=== PATIENT | male | born 1945 | race Caucasian/White ===

== ENCOUNTER 2021-05-26 15:20 | Inpatient (IN) | payer MEDICARE, OTHER ==
[~2021-05-26] VITALS: Ht 177.8 cm; Wt 81.6 kg
[~2021-05-26 15:20] MED LIST: ACETAMINOPHEN500 M1 PO; ASPIRIN CHEWABL81 MG PO; CALAN SR240 MG PO; CATAPRES0.2 MG PO; COREG 6.25MG6.25 MG PO; COREG25 MG PO; COZAAR100 MG PO; FLOMAX 0.4 MG0.4 MG PO; HCTZ25 MG PO; LACTINEX1 EACH PO; LEVAQUIN500 MG PO; MIRAPEX0.25 MG PO; PERCOCET 5-3251 EACH PO; PERCOCET 5/3251 TAB PO; ZOCOR40 MG PO; ZYRTEC10 MG PO; [UNRECOGNIZED DRUG - OTHER] PO
[2021-05-26 17:40] LABS: BILIRUBIN NEGATIVE (NEGATIVE); BLOOD NEGATIVE Ery/uL (NEGATIVE); CLARITY CLEAR (CLEAR); COLOR YELLOW (YELLOW); GLUCOSE (U) NORMAL (NORMAL); LEUKOCYTES NEGATIVE Leu/uL (NEGATIVE); NITRITE NEGATIVE (NEGATIVE); PROTEIN TRACE (LOW) mg/dL (NEGATIVE); SPECIFIC GRAVITY >=1.030 (1.001-1.030)
[2021-05-26 17:53] LABS: BASOPHIL 0.3 % (0-2); EOSINOPHIL 0.8 % (0-7); HCT 38.7 % (42.0-52.0); HGB 12.8 g/dl (13.2-18.0); LYMPHOCYTE 22.6 % (15-48); MCH 31.1 pg (25.0-31.0); MCHC 33.1 g/dL (32.0-36.0); MCV 94.2 fL (78.0-100.0); MONOCYTE 7.2 % (0-12); MPV 11.7 fL (6.0-9.5); NEUTROPHIL 68.8 % (41-80); NRBC 0; RBC 4.11 M/uL (4.70-6.00); RDW 12.3 % (11.5-14.0); WBC 3.6 K/uL (4.0-10.5)
[2021-05-26 18:13] LABS: PLT 73 K/uL (150-400)
[2021-05-26 18:16] LABS: LACTIC ACID 0.8 mmol/L (0.4-1.9)
[2021-05-26 18:22] LABS: ALBUMIN 2.6 g/dL (3.4-5.0); BILIRUBIN - TOTAL 0.3 mg/dL (0.2-1.0); BUN/CREAT RATIO (CALC) 29.5 RATIO; C-REACTIVE PROTEIN 8.7 mg/dL (<=0.90); CREATININE 0.88 mg/dL (0.67-1.17); GLOBULIN (CALCULATION) 3.3 g/dL; POTASSIUM 3.6 mmol/L (3.5-5.1); TOTAL PROTEIN 5.9 g/dL (6.4-8.2)
[2021-05-26 18:23] LABS: PRO-BNP 218 pg/mL (<450)
[2021-05-27] MEDS ORDERED: AMLODIPINE BESYL5 MG PO (01:17)
[2021-05-27] MEDS ORDERED: DESYREL50 MG PO (01:19)
[2021-05-27] MEDS ORDERED: DOCUSATE SODIU100 MG PO (01:20)
[2021-05-27] MEDS ORDERED: CARVEDILOL 25MG25 MG PO (01:21)
[2021-05-27] MEDS ORDERED: GABAPENTIN 100100 MG PO (01:23)
[2021-05-27] MEDS ORDERED: POTASSIUM CHLO10 ME1 PO (01:25)
[2021-05-27] MEDS ORDERED: CLOPIDOGREL75 MG PO (01:28)
[2021-05-27] MEDS ORDERED: ESCITALOPRAM OX10 MG PO (01:28)
[2021-05-27] MEDS ORDERED: ESCITALOPRAM OX20 MG PO (03:22)
[2021-05-27] MEDS ORDERED: TIZANIDINE HCL2 MG PO (03:24)
[2021-05-27] MEDS ORDERED: ROPINIROLE HCL1 MG PO (03:29)
[2021-05-27] MEDS ORDERED: TAMSULOSIN HCL0.4 MG PO (03:29)
[2021-05-27] MEDS ORDERED: LOSARTAN POTASS25 MG PO (03:32)
[2021-05-27 06:22] LABS: BASOPHIL 0 % (0-2); EOSINOPHIL 0 % (0-7); HCT 41.6 % (42.0-52.0); HGB 13.8 g/dl (13.2-18.0); MCH 30.7 pg (25.0-31.0); MCHC 33.2 g/dL (32.0-36.0); MCV 92.7 fL (78.0-100.0); MONOCYTE 4.3 % (0-12); MPV 11.4 fL (6.0-9.5); NEUTROPHIL 76.3 % (41-80); NRBC 0; PLT 75 K/uL (150-400); RBC 4.49 M/uL (4.70-6.00); RDW 12.2 % (11.5-14.0)
[2021-05-27 07:03] LABS: WBC 2.5 K/uL (4.0-10.5)
[2021-05-27 07:46] LABS: ALBUMIN 2.7 g/dL (3.4-5.0); BILIRUBIN - TOTAL 0.3 mg/dL (0.2-1.0); BUN/CREAT RATIO (CALC) 34.3 RATIO; CREATININE 0.67 mg/dL (0.67-1.17); GLOBULIN (CALCULATION) 3.6 g/dL; POTASSIUM 3.9 mmol/L (3.5-5.1); TOTAL PROTEIN 6.3 g/dL (6.4-8.2)
[2021-05-28 06:14] LABS: BASOPHIL 0.2 % (0-2); EOSINOPHIL 0 % (0-7); HCT 44.5 % (42.0-52.0); HGB 14.8 g/dl (13.2-18.0); LYMPHOCYTE 16.7 % (15-48); MCH 30.5 pg (25.0-31.0); MCHC 33.3 g/dL (32.0-36.0); MCV 91.8 fL (78.0-100.0); MONOCYTE 7.4 % (0-12); MPV 11.2 fL (6.0-9.5); NEUTROPHIL 75.4 % (41-80); NRBC 0; PLT 103 K/uL (150-400); RBC 4.85 M/uL (4.70-6.00)
[2021-05-28 06:23] LABS: WBC 6.7 K/uL (4.0-10.5)
[2021-05-28 06:59] LABS: ALBUMIN 2.8 g/dL (3.4-5.0); BILIRUBIN - TOTAL 0.4 mg/dL (0.2-1.0); BUN/CREAT RATIO (CALC) 37.1 RATIO; CREATININE 0.62 mg/dL (0.67-1.17); GLOBULIN (CALCULATION) 3.7 g/dL; MAGNESIUM 1.9 mg/dL (1.8-2.4); POTASSIUM 3.8 mmol/L (3.5-5.1); TOTAL PROTEIN 6.5 g/dL (6.4-8.2)
[2021-05-30 06:22] LABS: BASOPHIL 0 % (0-2); EOSINOPHIL 0.1 % (0-7); HCT 42.7 % (42.0-52.0); HGB 14.5 g/dl (13.2-18.0); LYMPHOCYTE 20.5 % (15-48); MCH 31.1 pg (25.0-31.0); MCV 91.6 fL (78.0-100.0); MONOCYTE 9.7 % (0-12); MPV 11.1 fL (6.0-9.5); NEUTROPHIL 69.3 % (41-80); NRBC 0; PLT 115 K/uL (150-400); RBC 4.66 M/uL (4.70-6.00); WBC 6.7 K/uL (4.0-10.5)
[2021-05-30 06:47] LABS: BUN/CREAT RATIO (CALC) 34.3 RATIO; C-REACTIVE PROTEIN 1.2 mg/dL (<=0.90); CREATININE 0.7 mg/dL (0.67-1.17); POTASSIUM 3.8 mmol/L (3.5-5.1)
[2021-05-30] MEDS ORDERED: DECADRON6 MG PO (12:19)
[2021-05-30] MEDS ORDERED: COZAAR100 MG PO (12:19)
[2021-05-30] MEDS ORDERED: VENTOLIN HFA IN18 GM INH (12:19)
--- NOTE | 2021-05-30 13:41 | NUR ---
05/30/21 Mr. España will be discharged home with his spouse. Referrals were made to [facility] for 1 and [facility] per family choice. Affliation is understood. Report given to MS NADINE Mcnulty.
--- NOTE | 2021-06-01 13:19 | NUR ---
PATIENT'S DAUGHTER WAS DISCHARGED TODAY, OF PATIENT CAME TO DROP [employer]PER[employer] DAUGHTER AND ASKED TO SIGN PAPERWORK FOR HER AND TO GET PORTABLE O2. I WENT OVER DISCHARGE INSRUCTIONS, SIGNED PAPERWORK AND O2 TANKS WERE GIVEN TO .
== END 2021-05-30 17:50 | disposition home health service (06) | DRG 177 ==
LOC: FER 15:20 → FMS 19:56
PROVIDERS: Internal Medicine; Nurse Practitioner; ADMIT Internal Medicine
PROC: 8E0ZXY6 Isolation (ICD-10-PCS; principal; 2021-05-26)
PROC: XW0DXM6 Introduction of Baricitinib into Mouth and Pharynx, External Approach, New Technology Group 6 (ICD-10-PCS; 2021-05-26)
PROC: XW033E5 Introduction of Remdesivir Anti-infective into Peripheral Vein, Percutaneous Approach, New Technology Group 5 (ICD-10-PCS; 2021-05-26)
DX: U07.1 COVID-19 (principal); J12.82 Pneumonia due to coronavirus disease 2019; J96.01 Acute respiratory failure with hypoxia; I10 Essential (primary) hypertension; E78.5 Hyperlipidemia, unspecified; E11.9 Type 2 diabetes mellitus without complications; G25.81 Restless legs syndrome; E55.9 Vitamin D deficiency, unspecified; M19.90 Unspecified osteoarthritis, unspecified site; Z96.611 Presence of right artificial shoulder joint; Z88.2 Allergy status to sulfonamides; Z88.1 Allergy status to other antibiotic agents; Z98.890 Other specified postprocedural states; Z83.3 Family history of diabetes mellitus; Z82.49 Family history of ischemic heart disease and other diseases of the circulatory system; Z95.5 Presence of coronary angioplasty implant and graft
CPT/HCPCS: 36415; 36600; 71045; 80048; 80053; 81003; 82728; 82803; 82962; 83605; 83735; 83880; 84145; 84484; 85025; 85379; 86140; 93005; 94010; 94640; 94760; 94762; C9399; J1100; J1650; J7050; U0002